=== PATIENT | male | born 1995 | race Caucasian/White ===

== ENCOUNTER 2018-07-25 03:05 | Emergency (ER) | payer BC | END 2018-07-25 04:57 | disposition home or self-care (01) | LOC: FTE 03:05 | DX: S99.921A Unspecified injury of right foot, initial encounter (principal); F17.210 Nicotine dependence, cigarettes, uncomplicated; F12.10 Cannabis abuse, uncomplicated; W26.8XXA Contact with other sharp object(s), not elsewhere classified, initial encounter; Y92.9 Unspecified place or not applicable | CPT/HCPCS: 73630; 99283-25 ==

== ENCOUNTER 2018-10-17 17:05 | Emergency (ER) | payer SELFPAY, BC | END 2018-10-17 18:21 | disposition left against medical advice (07) | LOC: FTE 17:05 | DX: Z53.21 Procedure and treatment not carried out due to patient leaving prior to being seen by health care provider (principal) ==